=== PATIENT | male | born 1940 | race Caucasian/White ===

== ENCOUNTER 2024-12-02 13:32 | Emergency (ER) | payer MEDICARE, OTHER ==
[~2024-12-02] VITALS: Ht 167.6 cm; Wt 81.6 kg
[~2024-12-02 13:32] MED LIST: DUTA0.5C2; LATA2.5D15; OLME1TAB26; SILO8CAP2; SITA25TA
[2024-12-02 13:54] VITALS: TEMP 98.1
[2024-12-02] MEDS ORDERED: HYDROCODONE/APAP 5/325MG TABLET ONE (17:47)
[2024-12-02] MEDS: HYDROCODONE/APAP 5/325MG TABLET PO ONE (17:50)
[2024-12-02 18:26] VITALS: BP 135/75; O2SAT 98
== END 2024-12-02 17:56 | disposition home or self-care (01) ==
LOC: ER 14:02
DX: S20.229A Contusion of unspecified back wall of thorax, initial encounter (principal); S09.90XA Unspecified injury of head, initial encounter; E11.9 Type 2 diabetes mellitus without complications; I10 Essential (primary) hypertension; M54.6 Pain in thoracic spine; N40.0 Benign prostatic hyperplasia without lower urinary tract symptoms; Z79.82 Long term (current) use of aspirin; W01.0XXA Fall on same level from slipping, tripping and stumbling without subsequent striking against object, initial encounter; Y93.89 Activity, other specified; Y92.89 Other specified places as the place of occurrence of the external cause; Y99.8 Other external cause status
CPT/HCPCS: 99284; 72125; 70450; 72128; 70486; A6403